=== PATIENT | male | born 1935 | race Caucasian/White ===

== ENCOUNTER 2016-06-26 22:13 | Inpatient (IN) | payer MEDICARE ==
[~2016-06-26] VITALS: Ht 188 cm; Wt 104.0 kg
--- NOTE | ~2016-06-26 | DS ---
PATIENT'S NAME: LUCY SHAFFER [facility] AGE: 80 Y [address] ROOM: G6324 [place], [place] [address] LOCATION: GPCU ADMIT DATE: 06/27/2016 Discharge Summary DISCHARGE DATE: 06/29/2016 FAMILY PHYSICIAN: Physician, Unknown ATTENDING PHYSICIAN: Harry Allen V PRINCIPAL DIAGNOSES: 1. Severe sepsis secondary to community-acquired pneumonia. 2. Community-acquired pneumonia. 3. Chronic obstructive pulmonary disease exacerbation. 4. Acute kidney injury. 5. Chronic kidney disease, stage III. 6. History of urolithiasis. 7. Atrial fibrillation, currently without any oral anticoagulation. 8. Recipient of IVC filter 3 years ago, still in place. HOSPITAL COURSE: An 80-year-old gentleman, was brought in by family because he was feeling weak and having fever and chills. Initial evaluation did show the evidence of sepsis with a white count as high as 21 and procalcitonin as high as 5. Initial chest x-ray and urinalysis did not show any evidence of infection at this point. He was given intravenous fluids per sepsis protocol as well as started on broad-spectrum antibiotics initially. He also had AB with a creatinine of 1.8, which did improve with the IV hydration. We repeated the chest x-ray next day and we did show the evidence of the left lower lobe pneumonia, which I believe was secondary to dehydration not shown on the first chest x-ray. He was treated with ertapenem as well as doxycycline with improvement in his infectious markers with a white count on discharge was 8 as well as procalcitonin dropping from 5-1.5. His AB improved and his creatinine on discharge was 1.4. He was treated with steroids as well as DuoNebs for his COPD exacerbation and that improved. It was discussed with the patient that he does have atrial fibrillation, currently in sinus rhythm on amiodarone, but he is not on any oral anticoagulation. The patient told me that it was advised by Dr. 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 His CHADS-VASc score is 3 and I asked the patient to follow up with Dr. Ramirez on Saturday with a BMP, CBC, and reconsideration of oral anticoagulation. We also did an abdominal CAT scan without any contrast. We did not show any evidence of any urolithiasis, but he does have multiple cysts in both kidneys, which have been there for many years now. He can follow up with Dr. Aubrey Sepulveda and Dr. Bell for that. CT of the chest did show presence of an IVC filter, which was placed in 2012. I am going to have him follow up with Dr. Gordon from [facility] in 1 week for the consideration of IVC filter removal. PATIENT'S NAME: LUCY SHAFFER [facility] AGE: 80 Y [address] ROOM: [id number] [place] [id number] LOCATION: GPCU ADMIT DATE: 06/27/2016 Discharge Summary DISCHARGE DATE: 06/29/2016 FAMILY PHYSICIAN: , Chiqui ATTENDING PHYSICIAN: Harry Allen V On reconciliation of his home medication, it is apparent that his COPD is not optimally treated at this point. I am going to start him on albuterol, Spiriva, as well as high dose of Dulera at this point. He will be discharged home on 60 mg of prednisone for couple of more days to overcome this exacerbation. He followed up with Dr. Miller in the past and I am going to make an appointment with Dr. Miller for this as well. His discharge antibiotics will include doxycycline as well as Augmentin for 4 more days. We avoided Levaquin during this hospitalization because he was on amiodarone already. DISCHARGE MEDICATIONS: 1. Amiodarone 100 mg p.o. every 48 hours, amiodarone 100 mg p.o. every day. 2. Aspirin 81 mg p.o. every night at bedtime. 3. Vitamin D2 2000 units p.o. every day. 4. Doxycycline 100 mg p.o. twice daily for 5 more days. 5. Metoprolol succinate 25 mg p.o. twice daily. 6. Nicotine patch, use as needed. 7. Prednisone 60 mg for 4 more days. 8. Simvastatin 20 mg p.o. every day. 9. Tamsulosin 0.4 mg p.o. every night at bedtime. 10. Dulera 550 inhalation twice daily. 11. Zolpidem 5 mg at bedtime. 12. I held the medication Lasix on discharge. 13. Spiriva 18 mcg inhalation daily. 14. Albuterol inhalation q.4 hours p.r.n. 15. Prednisone 60 mg p.o. daily for 4 days. 16. Doxycycline 100 mg p.o. b.i.d. for 5 days. 17. Augmentin 875/125 p.o. b.i.d. for 5 more days. ACTIVITIES: As tolerated. DIET: Low-sodium diet. FOLLOWUP: Follow up with Dr. Gordon in [facility] in 1 week for consideration of retrieval of IVC filter, which was placed for a provoked DVT, pulmonary embolism during hospitalization and inability to use oral anticoagulation. Follow up with Dr. Ramirez on Saturday to consider oral anticoagulation. Follow up with Dr. Miller in 1 week for COPD followup. Follow up with Dr. Aubrey Sepulveda in 1 week with CBC and a BMP. I spent 40 minutes in discharge planning, coordinating care, and discussion of all the above-mentioned plans for the patient. PATIENT'S NAME: LUCY SHAFFER [facility] AGE: 80 Y [address] ROOM: [place] [address] LOCATION: GPCU ADMIT DATE: 06/27/2016 Discharge Summary DISCHARGE DATE: 06/29/2016 FAMILY PHYSICIAN: Physician, Unknown ATTENDING PHYSICIAN: Harry Allen V MD ESDRAS REDMAN/pan /[id number] d: 06/30/16 0446 t: 07/08/16 1507, DISCHARGE SUMMARY
--- NOTE | ~2016-06-26 | ER ---
PATIENT'S NAME: LUCY SHAFFER [facility] AGE: 80 Y [address] ROOM: [place] [address] LOCATION: GPCU ADMIT DATE: 06/27/2016 ER/Outpatient Report DISCHARGE DATE: FAMILY PHYSICIAN: PHYSICIAN, UNKNOWN ATTENDING PHYSICIAN: JIMMIE JOSE V Admission date and time documented on the medical record. I saw the patient at 2225 hours. CHIEF COMPLAINT: Fever, shaking chills, rigors, weakness. HISTORY OF PRESENT ILLNESS: The patient is an 80-year-old male, who has been sick since Saturday, has had a fever over the past couple of days. His temperature was 101.6 here in the emergency department. He has generalized weakness. He got to the point tonight that he was so weak he could not even stand up. Feels tired and sleeping a lot. Sats were in the high 80s on room air at home. Along with a fever, he has had shaking chills, rigors. Denies any headache, eyes, ears, nose, throat, neck, or spine pain. No fall or trauma. Little lightheaded, dizzy, but no syncope or near syncope. No chest pain. He is short of breath, but no cough. No abdominal pain, nausea, vomiting, diarrhea. Has some problems urinating, but no urinary frequency or urgency. No extremity problems. No skin eruptions or rash. No history of neuro changes. No mental status changes. Does have a history of insulin-dependent diabetes mellitus. No thyroid disease or other endocrine problems. No psych issues. HOME MEDICATIONS: See attached medication list. ALLERGIES: PENICILLIN. SOCIAL HISTORY: Nonsmoker and nondrinker. SIGNIFICANT PAST MEDICAL HISTORY: Hypertension, recurrent urinary tract infections, diverticulosis, diverticulitis with perforated bowel, bladder stones, paroxysmal atrial fibrillation, insulin-dependent diabetes mellitus type 2, chronic kidney disease, congestive heart failure, dyslipidemia, remote tobacco abuse, pulmonary embolism, sepsis. OPERATIONS: IVC filter placement, cystolithotripsy, colon resection with colostomy PATIENT'S NAME: LUCY SHAFFER [facility] AGE: 80 Y [address] ROOM: [place] [address] LOCATION: GPCU ADMIT DATE: 06/27/2016 ER/Outpatient Report DISCHARGE DATE: FAMILY PHYSICIAN: PHYSICIAN, UNKNOWN ATTENDING PHYSICIAN: JIMMIE JOSE V formation: Vesical fistula repair, cardiac catheterization. REVIEW OF SYSTEMS: All systems reviewed by me are negative with exception of those discussed in the history of the present illness. PHYSICAL EXAMINATION: VITAL SIGNS: Temperature 101.6 tympanic, pulse 88 regular, respirations 20, blood pressure 118/65, O2 saturation on 2 L oxygen per nasal cannula is 97%. HEAD: Normocephalic. EYES: Extraocular muscles intact. PERRL. Sclerae and conjunctivae clear, nonicteric. Ears, clear TMs bilaterally. NOSE AND THROAT: Clear. Mucous membranes little dry. NECK: No nuchal rigidity. No thyromegaly or cervical adenopathy. LUNGS: Clear. No rales, rhonchi, or wheezes. HEART: Regular. Pulses are palpable. No chest wall or ribcage pain to palpation. ABDOMEN: Soft, mildly obese, nondistended, nontender. Active bowel tones. No organomegaly or abnormal mass palpable. EXTREMITIES: Without peripheral edema, cyanosis, or deformity. NEUROVASCULAR: Intact. SKIN: Clear. No skin eruptions or rash. IMAGING: Chest x-ray showed no acute infiltrate. We will review x-ray with radiologist. Blood cultures x2 drawn. Urine culture obtained, results pending. [place] [address], 86 segs, 5 lymphs, 8 monos, hemoglobin is 13.1, with hematocrit 39.3, platelet count is 235,000. Urine showed 2-5 whites, 5-10 reds, 0-2 epithelial cells, negative bacteria with 2+ mucus. Negative nitrite, culture pending. Lactate was 1.3. Procalcitonin was elevated at 1.7. Cardiac enzymes were normal. CPK was normal at 251. Amylase and lipase were normal. CMS was normal except for a slight low potassium of 3.5, elevated chloride of 111, low calcium of 8.3, elevated BUN of 31, elevated creatinine of 1.8. Low GFR of 36. PTT was 30, pro-time is 11.6, and INR 1.1. IMPRESSION: 1. Febrile illness with shaking rigors and generalized weakness. No evidence of acute pneumonia or urinary tract infection. The etiology of the fever is unknown. This may represent sepsis. The patient had elevated white count with left shift, elevated procalcitonin, fever, shaking chills and rigors. The patient had mild hypotension. 2. Diabetes mellitus type 2. 3. Chronic kidney disease. 4. History of recurrent urinary tract infections. PATIENT'S NAME: LUCY SHAFFER [facility] AGE: 80 Y [address] ROOM: [address] [place], [place] [address] [facility] ADMIT DATE: 06/27/2016 ER/Outpatient Report DISCHARGE DATE: FAMILY PHYSICIAN: PHYSICIAN, UNKNOWN ATTENDING PHYSICIAN: JIMMIE JOSE V 5. History of diverticulitis with perforated bowel with colon resection and colostomy formation. 6. Past history of bladder stones. 7. History of paroxysmal atrial fibrillation. 8. History of congestive heart failure. 9. Remote tobacco abuse. 10. Past history of pulmonary embolism. 11. Past history of sepsis. PLAN: I did discuss the patient with Dr. Donnelly. Dr. Donnelly is coming in the emergency room to evaluate the patient and proceed on his recommendations. Hydrating the patient. His vital signs were stable. He is feverish, awaiting culture reports. The patient will most likely be hospitalized. Accumulated critical care time 30 minutes. MD SINGH WONG/modl /[id number] d: 06/27/16 0129 t: 06/27/16 0247, OUTPATIENT REPORT
--- NOTE | ~2016-06-26 | ECHO ---
Transthoracic Echocardiography Report (TTE) Demographics Patient Name LUCY SHAFFER Date of Study 06/28/2016 Patient Number [id number] Visit Number [id number] Date of 1935 Room Number G6324 Gender Male Number Age 80 year(s) Referring Janiya Morse Pediatric Dietician Ekta Lambert [facility] Physician Physician Interpreting [facility] Lead Physician A Supervising Ordering MD/MLP Physician Nurse Stress Gage Designer Conclusions Contractility Score Summary Normal Left Ventricular contractility was noted. Summary Technically difficult exam. The estimated left ventricular ejection fraction is 60-65%. Moderate concentric left ventricular hypertrophy. Diastolic assessment reveals Grade I diastolic dysfunction. Procedure Type of Study TTE procedure:2D Echocardiogram. Procedure Date Date: 06/28/2016 Start: 11:43 AM Study Location: Inpatient Portable Indications:Acute combined systolic and diastolic heart failure. Appropriate Use Criteria: 9 Patient Status: Routine Height: 74 inches HR: 73 bpm BP: 131/71 mmHg M-Mode/2D Measurements LV Diastolic Dimension: 4.72 cm LV Systolic Dimension: 3.46 cm LV Septum Diastolic: 1.4 cm LV PW Diastolic: 1.45 cm AO Root Dimension: 2.9 cm Cardiac Output: 4.77 l/min AV Cusp Separation: 2.4 cm RV Diastolic Dimension: 3.06 cm LA Dimension: 3.9 cm EF Estimated: 65 % LA volume: 89 ml LVOT: 2 cm LVOT VTI: 20.8 cm TAPSE: 3.38 cm LV Stroke volume: 65.31 ml TDI-S': 18 cm/s Doppler Measurements AV Peak Velocity: 1.42 m/s MV Peak E-Wave: 0.58 m/s AV Peak Gradient: 8.07 mmHg MV Peak A-Wave: 0.64 m/s AV Mean Gradient: 6 mmHg MV E/A Ratio: 0.9 LVOT Peak Velocity: 1.29 m/s MV P1/2t: 75 msec E' Septal Velocity: 0.06 m/s A' Septal Velocity: 0.1 m/s Findings Left Ventricle Moderate concentric left ventricular hypertrophy. Diastolic assessment reveals Grade I diastolic dysfunction. Right Ventricle Mildly dilated right ventricle. Normal right ventricular systolic performance. Left Atrium The left atrium is mildly dilated. Right Atrium Normal right atrial size. Prominent Eustachian valve. Mitral Valve Trivial mitral regurgitation by color Doppler. Aortic Valve Normal aortic valve structure and function. Tricuspid Valve No tricuspid regurgitation by color Doppler. Pulmonic Valve Pulmonic valve is not well seen. Pericardial Effusion No evidence of pericardial effusion. Pleural Effusion No evidence of pleural effusion. Contractility Score LV regional wall motion:(0-Non visualized 1-Normal 2-Hypokinesis 3-Akinesis 4-Dyskinesis 5-Aneurysm) Signature dtt: Rios Oliver dtd: 06/28/16 1143 Physician Self Edit
--- NOTE | ~2016-06-26 | HP ---
PATIENT'S NAME: LUCY SHAFFER [facility] AGE: 80 Y [address] ROOM: [place] [address] LOCATION: GPCU ADMIT DATE: 06/27/2016 History & Physical DISCHARGE DATE: FAMILY PHYSICIAN: PHYSICIAN, UNKNOWN ATTENDING PHYSICIAN: JIMMIE JOSE V DATE OF SERVICE: CHIEF COMPLAINT: Fever and weakness. HISTORY OF PRESENT ILLNESS: The patient is an 80-year-old male with past medical history further listed below, most significant for COPD without oxygen dependency. The patient has been experiencing intermittent fever, fatigue, and chills in the course of last 3 days. He had an episode initially 3 days ago that resolved. Subsequently, he had another episode today. He does not quantify his fevers at home, but in the ER, he was 101.8. He also had a transient episode of borderline hypotension with blood pressure systolics in the 80s in the ER, which improved with IV fluids. He endorses chronic cough related to COPD and that has not gotten worse. He denies any chest pain, nausea, vomiting, or diarrhea associated with his presentation. He had an episode of diarrhea that was shared with his approximately 3 months ago, but that does not appear to be pertinent. In the ER, the patient was found to have leukocytosis of 18, a mild elevation of creatinine, and an unremarkable urine. He has received fluids, and at this point, he feels back at baseline. REVIEW OF SYSTEMS: All 10 systems have been reviewed and are negative aside from pertinent positives mentioned above. PAST MEDICAL HISTORY: As reported by the patient, 1. Atrial fibrillation, currently not on anticoagulation. 2. COPD. 3. Questionable history of congestive heart failure. 4. Essential hypertension. 5. Recurrent kidney/bladder stones, he did need a cystoscopy with lithotripsy as per our records. PAST SURGICAL HISTORY: Significant for a colostomy placed due to a nicked bowel done during a PATIENT'S NAME: LUCY SHAFFER [facility] AGE: 80 Y [address] ROOM: [place] [address] LOCATION: GPCU ADMIT DATE: 06/27/2016 History & Physical DISCHARGE DATE: FAMILY PHYSICIAN: PHYSICIAN, UNKNOWN ATTENDING PHYSICIAN: JIMMIE JOSE V diverticulitis surgery. CURRENT MEDICATIONS: 1. Amiodarone 100. 2. Furosemide 20. 3. Metoprolol 50 daily. 4. Simvastatin 20. 5. Vitamin D. 6. Advair. 7. Aspirin 81. 8. Ambien 10. SOCIAL HISTORY: The patient does have a longstanding, but no longer active history of tobacco use which involves cigarettes and pipe. He denies any ongoing toxic habits. FAMILY HISTORY: Reviewed and is noncontributory due to his advanced age and multiple medical problems. PHYSICAL EXAMINATION: VITAL SIGNS: At this point, blood pressure is 106/69, heart rate is 68, saturating 96% on 2 L nasal cannula. He is afebrile. Respirations 16. GENERAL: Appears as a well-developed, well-nourished, elderly male, in no acute distress, nontoxic. NEUROLOGICAL: Nonfocal. HEENT: Eye exam shows pupils are equal and reactive to light. LYMPHATIC: Shows no cervical lymphadenopathy. ENDOCRINE: Shows no thyromegaly. LUNGS: Reveal crackles at the left base. HEART: Heart sounds with no appreciable murmurs, gallops, or rubs. There is no jugular venous distention or lower extremity edema. ABDOMEN: Soft, nontender, nondistended. Aguirre sign is negative. A colostomy is in the left upper quadrant. : Reveals no costovertebral angle tenderness. VASCULAR: Reveals 2+ pedal pulses. SKIN: Warm and dry. PSYCHIATRIC: Reveals appropriate mood, cognition, and affect. MUSCULOSKELETAL: Shows no muscle or joint abnormalities. LABORATORY DATA: Review of studies done in the ER is limited due to a [employer] outing, but I did appreciate a white count of 18, creatinine elevation of 1.8 from a baseline below 1, and bilirubin of 1.7. His chest x-ray appears unremarkable. PATIENT'S NAME: LUCY SHAFFER [facility] AGE: 80 Y [address] ROOM: [address] [address] LOCATION: GPCU ADMIT DATE: 06/27/2016 History & Physical DISCHARGE DATE: FAMILY PHYSICIAN: PHYSICIAN, UNKNOWN ATTENDING PHYSICIAN: JIMMIE JOSE V ASSESSMENT AND PLAN: This is an 80-year-old male, who is being admitted with febrile illness and leukocytosis as well as acute kidney injury. Individual problems to be addressed as follows: 1. Febrile illness. At this point, the patient does meet sepsis criteria. He will be admitted to PCU as an inpatient. We will start him on sepsis orders, though at this point, I suspect that he only warrants Levaquin given that he is not a frequent user of healthcare system. We will support him with IV hydration. We will defend his perfusion. We will follow up blood and urine cultures drawn in the ER. We will assess him clinically for resolution of leukocytosis with antibiotic therapy. I have also requested for an influenza swab to be drawn. As far as additional sources of sepsis, it is possible that he might have a pneumonia based on his lung exam. Though given history of urolithiasis and an elevated bilirubin, we will get an abdominal ultrasound to rule out potential biliary/urinary source. 2. Acute kidney injury. We will hold his diuretics and gently hydrate the patient. Ultrasound as above. 3. Elevated bilirubin as above. 4. Transient hypotension. We will hold off on his metoprolol for the time being and monitor his blood pressure. 5. Reported atrial fibrillation. We will continue him on his amiodarone. 6. Chronic obstructive pulmonary disease/chronic respiratory failure. We will continue the patient on Advair. We will consider treating for chronic obstructive pulmonary disease exacerbation, though at this point, he does not have any wheezing, and we will monitor him for hypoxia. 7. Essential hypertension. We will hold off on his beta blockers due to hypotension above. 8. Deep venous thrombosis prophylaxis will be non-pharmacologic for the time being. We will institute pharmacologic prophylaxis if the patient stays in the hospital for more than 48 hours. Additional management will depend on clinical course. Time dedicated to this patient's encounter is 35 minutes. MD ANG PHILLIPS/pan /[id number] D: [id number] T: 732 HISTORY & PHYSICAL
[2016-06-26 22:48] LABS: BLOOD URINE 150 /UL (NEGATIVE); COLOR URINE AMBER (YELLOW); GLUCOSE URINE NEGATIVE (NEGATIVE); KETONE URINE NEGATIVE (NEGATIVE); LEUKOCYTES URINE 25 /UL (NEGATIVE); NITRITE URINE NEGATIVE (NEGATIVE); PROTEIN URINE 30 mg/dL (NEGATIVE); TURBIDITY URINE CLEAR (CLEAR); UROBILINOGEN URINE 1 mg/dL (NORMAL)
[2016-06-26 23:04] LABS: BASOPHIL % 0.2 %; EOSINOPHIL % 0.1 %; HEMATOCRIT 39.3 % (33.0-50.0); HEMOGLOBIN 13.1 g/dL (11.0-16.0); IMMATURE GRANULOCYTE # 0.2 K/uL (0.0-0.3); LYMPHOCYTE # 0.9 K/uL (0.8-4.0); LYMPHOCYTE % 5.1 %; MCH 33.5 pg (27.0-34.0); MCHC 33.3 gm/dL (32.0-36.5); MCV 100.5 fl (83.0-98.0); MONOCYTE # 1.5 K/uL (0.0-1.0); MPV 8.9 fl (9.4-12.4); NEUTROPHIL # (ANC) 15.9 K/uL (1.4-9.0); NEUTROPHIL % 85.6 %; NRBC % 0 /100WBC (0-0.00); PLATELET COUNT 235 K/uL (150-450); RBC 3.91 M/uL (3.50-5.50); RDW-CV 13.2 % (11.9-14.6)
[2016-06-26 23:06] LABS: BACTERIA URINE NEGATIVE (NEGATIVE); EPITHELIAL URINE 0-2 #/HPF (NEGATIVE); HYALINE CAST URINE 0-2 #/LPF (NEGATIVE); MUCUS URINE 2+ (NEGATIVE)
[2016-06-26 23:06] LABS: WBC 18.5 K/uL (4.0-11.0)
[2016-06-26 23:11] LABS: PROTIME 11.6 SECONDS (9.8-11.4); PTT 30 SECONDS (25-32)
[2016-06-26 23:20] LABS: ALBUMIN 2.5 gm/dL (3.5-5.0); ALK PHOS 49 IU/L (33-138); ALT 15 IU/L (12-78); ANION GAP 12.5 (10.0-19.0); AST 13 IU/L (10-40); BLOOD UREA NITROGEN 31 mg/dL (6-24); CALCIUM 8.3 mg/dL (8.5-10.5); CHLORIDE 111 mMol/L (96-110); CO2 22 mMol/L (22-32); CPK 251 IU/L (35-332); CREATININE 1.8 mg/dL (0.6-1.3); ESTIMATED GFR (MDRD EQUATION) 36; POTASSIUM 3.5 mMol/L (3.7-5.1); SODIUM 142 mMol/L (135-145); TOTAL BILIRUBIN 1.7 mg/dL (0.0-1.5); TOTAL PROTEIN 5.5 g/dL (6.0-8.4)
[2016-06-27] MEDS ORDERED: CORDARONE,PACE200 MG PO ×2 (02:41→02:44)
[2016-06-27] MEDS ORDERED: LASIX20 MG (02:46)
[2016-06-27] MEDS ORDERED: LOPRESSOR50 MG PO (02:46)
[2016-06-27] MEDS ORDERED: ZOCOR20 MG PO (02:47)
[2016-06-27] MEDS ORDERED: TOPROL XL25 MG PO (02:47)
[2016-06-27] MEDS ORDERED: VITAMIN D-32000 UNI1 PO (02:48)
[2016-06-27] MEDS ORDERED: ADVAIR 500-501 EACH INH (02:49)
[2016-06-27] MEDS ORDERED: ASPIRIN (CHILDR81 MG PO (02:52)
[2016-06-27] MEDS ORDERED: AMBIEN5 MG PO (02:53)
[2016-06-27 05:03] LABS: HEMATOCRIT 39.9 % (33.0-50.0); HEMOGLOBIN 12.8 g/dL (11.0-16.0); MCH 32.8 pg (27.0-34.0); MCHC 32.1 gm/dL (32.0-36.5); MCV 102.3 fl (83.0-98.0); PLATELET COUNT 219 K/uL (150-450); RDW-CV 13.3 % (11.9-14.6)
[2016-06-27 05:08] LABS: BICARBONATE 23.1 mmol/L (18.0-23.0); LACTATE 1.3 mEq/L (0.50-1.60); PCO2 34 mmHg (35-45); PO2 68 mmHg (80-90)
[2016-06-27 05:20] LABS: ALBUMIN 2.4 gm/dL (3.5-5.0); ANION GAP 12.7 (10.0-19.0); CALCIUM 8.3 mg/dL (8.5-10.5); CREATININE 1.8 mg/dL (0.6-1.3); MAGNESIUM 1.9 mg/dL (1.8-2.6); POTASSIUM 3.7 mMol/L (3.7-5.1); TOTAL BILIRUBIN 1.6 mg/dL (0.0-1.5); TOTAL PROTEIN 5.4 g/dL (6.0-8.4)
[2016-06-27 05:43] LABS: ABSOLUTE NEUTROPHIL CT (ANC) 17.9 K/uL (1.4-9.0); BANDED NEUTROPHIL # 6.5 K/uL (0.0-0.1); BANDED NEUTROPHILS % 31 %; LYMPHOCYTE # 2.1 K/uL (0.8-4.0); LYMPHOCYTE % 10 %; MONOCYTE # 0.8 K/uL (0.0-1.0); SEGMENTED NEUTROPHIL # 11.3 K/uL (1.4-9.0); SEGMENTED NEUTROPHIL % 54 %
[2016-06-27 18:34] LABS: BASOPHIL % 0.2 %; EOSINOPHIL % 0.2 %; HEMATOCRIT 42.6 % (33.0-50.0); HEMOGLOBIN 13.9 g/dL (11.0-16.0); IMMATURE GRANULOCYTE # 0.2 K/uL (0.0-0.3); IMMATURE GRANULOCYTE % 0.8 %; LYMPHOCYTE # 1.7 K/uL (0.8-4.0); LYMPHOCYTE % 8.9 %; MCH 33.2 pg (27.0-34.0); MCHC 32.6 gm/dL (32.0-36.5); MCV 101.7 fl (83.0-98.0); MONOCYTE # 1.4 K/uL (0.0-1.0); MPV 8.8 fl (9.4-12.4); NEUTROPHIL # (ANC) 16.2 K/uL (1.4-9.0); NEUTROPHIL % 82.9 %; NRBC % 0 /100WBC (0-0.00); PLATELET COUNT 237 K/uL (150-450); RBC 4.19 M/uL (3.50-5.50); RDW-CV 13.2 % (11.9-14.6)
[2016-06-27 18:37] LABS: WBC 19.5 K/uL (4.0-11.0)
[2016-06-27 18:49] LABS: ANION GAP 13.7 (10.0-19.0); CALCIUM 8.6 mg/dL (8.5-10.5); CREATININE 1.5 mg/dL (0.6-1.3); POTASSIUM 3.7 mMol/L (3.7-5.1)
[2016-06-28 05:26] LABS: BASOPHIL # 0.1 K/uL (0.0-0.2); BASOPHIL % 0.3 %; EOSINOPHIL # 0.2 K/uL (0.0-0.5); HEMOGLOBIN 11.9 g/dL (11.0-16.0); IMMATURE GRANULOCYTE # 0.1 K/uL (0.0-0.3); IMMATURE GRANULOCYTE % 0.9 %; LYMPHOCYTE # 2.1 K/uL (0.8-4.0); LYMPHOCYTE % 13.5 %; MCH 33.6 pg (27.0-34.0); MCHC 33.1 gm/dL (32.0-36.5); MCV 101.7 fl (83.0-98.0); MONOCYTE # 1.3 K/uL (0.0-1.0); MONOCYTE % 8.4 %; MPV 9.4 fl (9.4-12.4); NEUTROPHIL % 75.9 %; NRBC % 0 /100WBC (0-0.00); PLATELET COUNT 231 K/uL (150-450); RBC 3.54 M/uL (3.50-5.50); RDW-CV 13.1 % (11.9-14.6); WBC 15.8 K/uL (4.0-11.0)
[2016-06-28 05:36] LABS: ANION GAP 12.6 (10.0-19.0); CALCIUM 8.6 mg/dL (8.5-10.5); CREATININE 1.4 mg/dL (0.6-1.3); POTASSIUM 3.6 mMol/L (3.7-5.1)
[2016-06-29 04:19] LABS: BASOPHIL % 0.1 %; HEMATOCRIT 35.7 % (33.0-50.0); HEMOGLOBIN 11.8 g/dL (11.0-16.0); IMMATURE GRANULOCYTE # 0.1 K/uL (0.0-0.3); IMMATURE GRANULOCYTE % 0.7 %; LYMPHOCYTE # 0.8 K/uL (0.8-4.0); LYMPHOCYTE % 8.8 %; MCH 33.4 pg (27.0-34.0); MCHC 33.1 gm/dL (32.0-36.5); MCV 101.1 fl (83.0-98.0); MONOCYTE # 0.4 K/uL (0.0-1.0); MONOCYTE % 5.1 %; MPV 9.1 fl (9.4-12.4); NEUTROPHIL # (ANC) 7.4 K/uL (1.4-9.0); NEUTROPHIL % 85.3 %; NRBC % 0 /100WBC (0-0.00); PLATELET COUNT 260 K/uL (150-450); RBC 3.53 M/uL (3.50-5.50); WBC 8.7 K/uL (4.0-11.0)
[2016-06-29 04:41] LABS: ANION GAP 11.9 (10.0-19.0); CALCIUM 8.5 mg/dL (8.5-10.5); CREATININE 1.4 mg/dL (0.6-1.3); POTASSIUM 3.9 mMol/L (3.7-5.1)
[2016-06-29] MEDS ORDERED: DOXYCYCLINE100 MG PO (11:30)
[2016-06-29] MEDS ORDERED: DELTASONE20 MG PO (11:36)
[2016-06-29] MEDS ORDERED: FLOMAX0.4 MG PO (11:40)
[2016-06-29] MEDS ORDERED: PROVENTIL OR V6.7 GM INH (11:51)
[2016-06-29] MEDS ORDERED: AUGMENTIN 875-1 EACH PO (11:58)
[2016-06-29] MEDS ORDERED: CODEINE-GUAIFE473 ML PO (12:02)
[2016-06-29] MEDS ORDERED: SPIRIVA HANDIHA1 KIT INH (12:06)
== END 2016-06-29 13:09 | disposition disaster alternative care site (69) | DRG 871 ==
LOC: GMED 22:13 → GPCU 06-27 00:45
PROVIDERS: Emergency Medicine; Internal Medicine; ADMIT Internal Medicine
DX: A41.9 Sepsis, unspecified organism (principal); J18.9 Pneumonia, unspecified organism; N17.9 Acute kidney failure, unspecified; J96.10 Chronic respiratory failure, unspecified whether with hypoxia or hypercapnia; J44.1 Chronic obstructive pulmonary disease with (acute) exacerbation; I48.0 Paroxysmal atrial fibrillation; I50.9 Heart failure, unspecified; E11.9 Type 2 diabetes mellitus without complications; E86.0 Dehydration; Z87.440 Personal history of urinary (tract) infections; Z86.711 Personal history of pulmonary embolism; Z93.3 Colostomy status; Z87.891 Personal history of nicotine dependence; Z87.442 Personal history of urinary calculi; I12.9 Hypertensive chronic kidney disease with stage 1 through stage 4 chronic kidney disease, or unspecified chronic kidney disease; N18.3 Chronic kidney disease, stage 3 (moderate); Z95.828 Presence of other vascular implants and grafts
CPT/HCPCS: C9113; J1335; J1644; J1650; J1956; J7030; J7050; J7120; J7512

== ENCOUNTER → 2016-06-26 | Outpatient (CLI) | payer MEDICARE ==
[~2016-06-26] MED LIST: ADVAIR 500-501 EACH INH; AMBIEN5 MG PO; ASPIRIN (CHILDR81 MG PO; AUGMENTIN 875-1 EACH PO; CODEINE-GUAIFE473 ML PO; CORDARONE,PACE200 MG PO; DELTASONE20 MG PO; DOXYCYCLINE100 MG PO; FLOMAX0.4 MG PO; LASIX20 MG; LOPRESSOR50 MG PO; PROVENTIL OR V6.7 GM INH; SPIRIVA HANDIHA1 KIT INH; TOPROL XL25 MG PO; VITAMIN D-32000 UNI1 PO; ZOCOR20 MG PO
== END | disposition disaster alternative care site (69) ==
LOC: GAMB 21:48
DX: R50.9 Fever, unspecified (principal); I10 Essential (primary) hypertension; R53.1 Weakness; Z87.440 Personal history of urinary (tract) infections; Z93.3 Colostomy status; Z88.0 Allergy status to penicillin
CPT/HCPCS: A0422; A0425; A0429; J7030